=== PATIENT | female | born 1970 | race Caucasian/White ===

== ENCOUNTER 2017-05-05 23:05 | Emergency (ER) | payer MEDICAID ==
[2017-05-05 23:33] LABS: APPEARANCE CLEAR (CLEAR); BILIRUBIN NEGATIVE (NEGATIVE); COLOR YELLOW (YELLOW); GLUCOSE NEGATIVE (NEGATIVE); KETONE NEGATIVE (NEGATIVE); NITRITE NEGATIVE (NEGATIVE); PROTEIN NEGATIVE (NEGATIVE); UROBILINOGEN NORMAL (NORMAL)
[2017-05-05 23:46] LABS: UDS - AMPHET NEGATIVE QUAL (NEGATIVE); UDS - BARB NEGATIVE QUAL (NEGATIVE); UDS - BENZO NEGATIVE QUAL (NEGATIVE); UDS - COCAINE NEGATIVE QUAL (NEGATIVE); UDS - OPIATE NEGATIVE QUAL (NEGATIVE); UDS - PCP NEGATIVE QUAL (NEGATIVE); UDS - THC NEGATIVE QUAL (NEGATIVE)
[2017-05-06 00:13] LABS: BASOPHILS 0.4 % (0-2); EOSINOPHILS 2.5 % (0-7); HEMOGLOBIN 11.8 g/dL (12-16); IMMATURE GRANULOCYTES 0.5 % (0-5); LYMPHOCYTES 43.8 % (15-50); MCHC 31.9 g/dL (31.0-37.0); MCV 87.9 fL (80.0-100.0); MEAN PLATELET VOLUME 11.7 fL (7.4-10.4); MONOCYTES 7.3 % (2-11); NEUTROPHILS 45.5 % (40-80); RBC 4.21 10x6/uL (4.00-5.40); RDW 20.3 % (11.5-14.5); WBC 14.6 10x3/uL (4.8-10.8)
[2017-05-06 00:16] LABS: PLATELET COUNT 231 10x3/uL (130-400)
[2017-05-06 00:28] LABS: ALBUMIN 2.5 g/dL (3.4-5.0); ALKALINE PHOSPHATASE 209 U/L (46-116); ALT (SGPT) 232 U/L (10-68); CALC OSMOLALITY 274 mosm/kg (275-300); CALCIUM 8.3 mg/dL (8.5-10.1); CARBON DIOXIDE 24.8 mmol/L (21.0-32.0); CHLORIDE - SERUM 103 mmol/L (98-107); CREATININE - SERUM 0.6 mg/dL (0.6-1.3); GLUCOSE 98 mg/dL (74-106); POTASSIUM - SERUM 4.1 mmol/L (3.5-5.1); PROTEIN - SERUM 6.3 g/dL (6.4-8.2); SODIUM 138 mmol/L (136-145); UREA NITROGEN 11 mg/dL (7-18); eGFR NON AFRICAN AMERICAN > 90 mL/min (90-120)
== END 2017-05-06 01:38 | disposition home or self-care (01) ==
LOC: D.ER 23:05
PROVIDERS: Family Medicine
DX: Z86.59 Personal history of other mental and behavioral disorders (principal); R94.5 Abnormal results of liver function studies

== ENCOUNTER 2017-09-29 13:56 | Observation (INO) | payer MEDICAID ==
[~2017-09-29] VITALS: Ht 167.6 cm; Wt 121.1 kg
[2017-09-29] MEDS ORDERED: LISINOPRIL10 MG PO (14:23)
[2017-09-29] MEDS ORDERED: HYDROCODONE-APA1 TAB PO (14:23)
[2017-09-29] MEDS ORDERED: ATIVAN2 MG PO (14:23)
[2017-09-29] MEDS ORDERED: NEURONTIN 300300 MG PO (14:24)
[2017-09-29 14:30] VITALS: BP 118/64
[2017-09-29 15:01] VITALS: BP 144/69
[2017-09-29 15:03] LABS: BASOPHILS 0.4 % (0-2); EOSINOPHILS 1.4 % (0-7); HEMOGLOBIN 11.5 g/dL (12-16); IMMATURE GRANULOCYTES 0.4 % (0-5); LYMPHOCYTES 32.4 % (15-50); MCH 26.2 pg (26.0-34.0); MCHC 31.1 g/dL (31.0-37.0); MCV 84.3 fL (80.0-100.0); MEAN PLATELET VOLUME 11.6 fL (7.4-10.4); MONOCYTES 7.4 % (2-11); PLATELET COUNT 299 10x3/uL (130-400); RBC 4.39 10x6/uL (4.00-5.40); WBC 10.5 10x3/uL (4.8-10.8)
[2017-09-29 15:15] LABS: APTT 22.5 SECONDS (22.8-39.4); INR 0.88 (0.85-1.17); PROTIME 11.5 SECONDS (11.6-15.0)
[2017-09-29 15:17] LABS: D-DIMER-QUANTITATIVE 1.23 ug/mLFEU (0.20-0.54)
[2017-09-29 15:21] LABS: ALBUMIN 3.1 g/dL (3.4-5.0); ALKALINE PHOSPHATASE 132 U/L (46-116); ALT (SGPT) 19 U/L (10-68); BILIRUBIN - TOTAL 0.46 mg/dL (0.2-1.3); CALC OSMOLALITY 279 mosm/kg (275-300); CALCIUM 8.7 mg/dL (8.5-10.1); CARBON DIOXIDE 28.9 mmol/L (21.0-32.0); CHLORIDE - SERUM 104 mmol/L (98-107); CREATININE - SERUM 0.9 mg/dL (0.6-1.3); GLUCOSE 111 mg/dL (74-106); POTASSIUM - SERUM 3.7 mmol/L (3.5-5.1); PROTEIN - SERUM 6.9 g/dL (6.4-8.2); SODIUM 140 mmol/L (136-145); UREA NITROGEN 12 mg/dL (7-18); eGFR NON AFRICAN AMERICAN 71 mL/min (90-120)
[2017-09-29 15:33] LABS: CKMB 0.6 U/L (0.0-3.6); CREATINE KINASE 42 UL (21-215); PRO BNP 201 pg/mL (0-125)
[2017-09-29 15:34] LABS: TROPONIN-I < 0.017 ng/mL (0.000-0.060)
[2017-09-29 16:00] VITALS: BP 102/57
[2017-09-29 17:00] VITALS: BP 122/71
[2017-09-29 18:00] VITALS: BP 141/68
[2017-09-29] MEDS ORDERED: SEROQUEL400 MG PO (20:57)
[2017-09-29 21:10] LABS: CKMB 0.7 U/L (0.0-3.6); CREATINE KINASE 34 UL (21-215)
[2017-09-29 21:11] LABS: TROPONIN-I < 0.017 ng/mL (0.000-0.060)
[2017-09-29 21:58] VITALS: BP 120/54
[2017-09-29 22:55] VITALS: BMI 43.2
[2017-09-30] VITALS (7 sets, daily range): BP systolic 98–142; BP diastolic 48–70; Ht 167.6 cm; Wt 121.1 kg
[2017-09-30 05:54] LABS: CKMB 0.5 U/L (0.0-3.6); CREATINE KINASE 34 UL (21-215); TROPONIN-I < 0.017 ng/mL (0.000-0.060)
[2017-09-30 08:41] LABS: CKMB 0.7 U/L (0.0-3.6); CREATINE KINASE 36 UL (21-215)
[2017-09-30 08:45] LABS: TROPONIN-I < 0.017 ng/mL (0.000-0.060)
[2017-09-30 11:46] LABS: BASOPHILS 0 % (0-2); EOSINOPHILS 0 % (0-7); HEMATOCRIT 37.9 % (36.0-48.0); HEMOGLOBIN 11.7 g/dL (12-16); IMMATURE GRANULOCYTES 0.4 % (0-5); MCH 26.2 pg (26.0-34.0); MCHC 30.9 g/dL (31.0-37.0); MEAN PLATELET VOLUME 12.5 fL (7.4-10.4); MONOCYTES 0.5 % (2-11); NEUTROPHILS 86.1 % (40-80); PLATELET COUNT 340 10x3/uL (130-400); RBC 4.46 10x6/uL (4.00-5.40); WBC 9.6 10x3/uL (4.8-10.8)
[2017-09-30 12:03] LABS: ANION GAP 17.2 mmol/L (8-16); CALCIUM 8.8 mg/dL (8.5-10.1)
[2017-09-30 12:08] LABS: POTASSIUM - SERUM 5.2 mmol/L (3.5-5.1)
[2017-10-01 04:00] VITALS: BP 105/55
[2017-10-01 05:31] LABS: BASOPHILS 0 % (0-2); EOSINOPHILS 0.1 % (0-7); HEMATOCRIT 34.6 % (36.0-48.0); HEMOGLOBIN 10.6 g/dL (12-16); IMMATURE GRANULOCYTES 0.5 % (0-5); LYMPHOCYTES 6.4 % (15-50); MCHC 30.6 g/dL (31.0-37.0); MEAN PLATELET VOLUME 11.7 fL (7.4-10.4); MONOCYTES 2.6 % (2-11); NEUTROPHILS 90.4 % (40-80); PLATELET COUNT 285 10x3/uL (130-400); RBC 4.07 10x6/uL (4.00-5.40); RDW 17.2 % (11.5-14.5)
[2017-10-01 05:51] LABS: CALCIUM 8.5 mg/dL (8.5-10.1); CARBON DIOXIDE 29.8 mmol/L (21.0-32.0); CHLORIDE - SERUM 105 mmol/L (98-107); SODIUM 141 mmol/L (136-145)
[2017-10-01 06:04] LABS: WBC 18.7 10x3/uL (4.8-10.8)
[2017-10-01 06:06] LABS: CALC OSMOLALITY 281 mosm/kg (275-300); CREATININE - SERUM 0.7 mg/dL (0.6-1.3); GLUCOSE 134 mg/dL (74-106); POTASSIUM - SERUM 4.2 mmol/L (3.5-5.1); UREA NITROGEN 11 mg/dL (7-18); eGFR NON AFRICAN AMERICAN > 90 mL/min (90-120)
[2017-10-01 07:45] VITALS: BP 110/61
[2017-10-01] MEDS ORDERED: LEVAQUIN500 MG PO (09:56)
[2017-10-01] MEDS ORDERED: ALBUTEROL2.5 MG/3 M INH (09:56)
[2017-10-01] MEDS ORDERED: PROTONIX40 MG PO (09:57)
[2017-10-01] MEDS ORDERED: STERAPRED 5MG 65 M1 PO (09:57)
== END 2017-10-01 13:15 | disposition home or self-care (01) ==
LOC: D.ER 13:56 → D.EDHOLD 19:24 → D.M2 19:24 → OBSVTIME 19:24 → D.M2 19:55
PROVIDERS: Family Medicine; Internal Medicine Nephrology
DX: J44.0 Chronic obstructive pulmonary disease with (acute) lower respiratory infection (principal); J44.1 Chronic obstructive pulmonary disease with (acute) exacerbation; J20.9 Acute bronchitis, unspecified; F17.213 Nicotine dependence, cigarettes, with withdrawal; F41.8 Other specified anxiety disorders; E87.5 Hyperkalemia; I10 Essential (primary) hypertension

== ENCOUNTER 2018-05-26 14:10 | Inpatient (IN) | payer MEDICAID ==
[~2018-05-26] VITALS: Ht 167.6 cm; Wt 85.0 kg
--- NOTE | ~2018-05-26 | EC ---
PATIENT:DAVID IVEY DATE OF SERVICE: 05/27/18 SEX: F MEDICAL RECORD: [id number] DATE OF : [birth year] LOCATION:D. D.211 AGE OF PATIENT: 48 ADMISSION DATE: 05/27/18 REFERRING PHYSICIAN: INTERPRETING PHYSICIAN: RADHA CEBALLOS MD ECHOCARDIOGRAM REPORT ECHO CHARGES 4 ECHO COMPLETE Date: 05/28/18 CLINICAL DIAGNOSIS: SOB ECHOCARDIOGRAPHIC MEASUREMENTS (adult normal given) AC root (d.<3.7cm) 3.0 cm LV Septum d (<1.2 cm> 1.3 cm Valve Excursion 1.8 cm LV Septum (systole) 1.3 cm Left Atria (s.<4.0cm> 2.8 cm LVPW d(<1.2cm) 1.3 cm RV (d.<2.3cm) 2.8 cm LVPW (sytole) 1.8 cm LV diastole(<5.6CM) 4.4 cm MV E-F(>70mm/sec) cm LV systole 3.1 cm LVOT Diameter 2.0 cm MV exc.(>10mm) cm Est.ejection fraction (50-75%) % DOPPLER: LVIT cm/sec A 85 cm/sec E 92 cm/sec LA cm/sec RVSP 23.1 mmHg LVOT 110 cm/sec AOP1/2T m/s Asc. Ao 134 cm/sec RVOT 80 cm/sec RA cm/sec PA 78 cm/sec AV Gradient Peak 7.1 mmHg AV Mean 3.9 mmHg AV Area 2.6 cm MV Gradient Peak 3.7 mmHg MV Mean 1.9 mmHg MV Area cm COMMENTS: Outdoor Education Teacher: Franca [facility] Box Stamper: 3 Dr. Davis TAPE# PACS Pericardial Effusion N DATE OF SERVICE: Adequate 2D echo, color flow and spectral Doppler, and M-Mode Borderline LVH. LV internal dimensions are normal. Wall motion is normal. EF is greater than or equal to 55%. Aortic valve is tricuspid. No evidence of stenosis by Doppler interrogation. Left atrium is normal. Mitral valve shows prolapse, trace MR. Right-sided chamber is grossly normal. Trace TR. TRANSINT:[id number] Voice Confirmation ID: [id number] DOCUMENT ID: [id number] ECHOCARDIOGRAM REPORT [id number] DAVID IVEY RADHA CEBALLOS MD CC: [id number] DICTATION DATE: 05/29/18 1014 HANDLE MACHINE OPERATOR: 05/29/18 1232 ADM IN [facility] [address] [id number]
[~2018-05-26 14:10] MED LIST: ALBUTEROL2.5 MG/3 M INH; ATIVAN2 MG PO; HYDROCODONE-APA1 TAB PO; LEVAQUIN500 MG PO; LISINOPRIL10 MG PO; NEURONTIN 300300 MG PO; PROTONIX40 MG PO; SEROQUEL400 MG PO; STERAPRED 5MG 65 M1 PO
[2018-05-26] MEDS ORDERED: METOPROLOL TART50 MG PO (14:16)
[2018-05-26 14:30] VITALS: BP 138/73
[2018-05-26 15:03] LABS: APTT 22.1 SECONDS (22.8-39.4); INR 0.98 (0.85-1.17); PROTIME 12.5 SECONDS (11.6-15.0)
[2018-05-26 15:08] LABS: ALBUMIN 3.4 g/dL (3.4-5.0); ALKALINE PHOSPHATASE 144 U/L (46-116); ALT (SGPT) 21 U/L (10-68); CALC OSMOLALITY 269 mosm/kg (275-300); CALCIUM 8.2 mg/dL (8.5-10.1); CARBON DIOXIDE 21.9 mmol/L (21.0-32.0); CHLORIDE - SERUM 98 mmol/L (98-107); CREATININE - SERUM 0.6 mg/dL (0.6-1.3); GLUCOSE 114 mg/dL (74-106); POTASSIUM - SERUM 4.2 mmol/L (3.5-5.1); PROTEIN - SERUM 7.1 g/dL (6.4-8.2); SODIUM 135 mmol/L (136-145); UREA NITROGEN 11 mg/dL (7-18); eGFR NON AFRICAN AMERICAN > 90 mL/min (90-120)
[2018-05-26 15:10] LABS: APPEARANCE CLEAR (CLEAR); BILIRUBIN NEGATIVE (NEGATIVE); COLOR STRAW (YELLOW); GLUCOSE NEGATIVE (NEGATIVE); KETONE NEGATIVE (NEGATIVE); NITRITE NEGATIVE (NEGATIVE); PROTEIN TRACE mg/dL (NEGATIVE); SPECIFIC GRAVITY 1.005 (1.005-1.020); UROBILINOGEN NORMAL (NORMAL)
[2018-05-26 15:11] LABS: D-DIMER-QUANTITATIVE 6.78 ug/mLFEU (0.20-0.54)
[2018-05-26 15:15] LABS: BASOPHILS 0.7 % (0-2); EOSINOPHILS 0.9 % (0-7); HEMATOCRIT 36.1 % (36.0-48.0); HEMOGLOBIN 11.2 g/dL (12-16); IMMATURE GRANULOCYTES 0.5 % (0-5); LYMPHOCYTES 38.7 % (15-50); MEAN PLATELET VOLUME 11.6 fL (7.4-10.4); MONOCYTES 6.8 % (2-11); NEUTROPHILS 52.4 % (40-80); RDW 16.9 % (11.5-14.5); WBC 16.4 10x3/uL (4.8-10.8)
[2018-05-26 15:16] LABS: PLATELET COUNT 374 10x3/uL (130-400)
[2018-05-26 15:20] LABS: CKMB 1.6 U/L (0.0-3.6); CREATINE KINASE 61 UL (21-215); PRO BNP 94 pg/mL (0-125); TROPONIN-I < 0.017 ng/mL (0.000-0.060)
[2018-05-26 15:22] LABS: UDS - AMPHET NEGATIVE QUAL (NEGATIVE); UDS - BARB NEGATIVE QUAL (NEGATIVE); UDS - BENZO NEGATIVE QUAL (NEGATIVE); UDS - COCAINE NEGATIVE QUAL (NEGATIVE); UDS - OPIATE NEGATIVE QUAL (NEGATIVE); UDS - PCP NEGATIVE QUAL (NEGATIVE); UDS - THC NEGATIVE QUAL (NEGATIVE)
--- NOTE | 2018-05-26 15:28 | NUR ---
PT WALLERING AROUND IN BED, SMELL OF ETOH ASK IF SHE HAS BEEN DRINKING , SHE STATES YES EARLIER TODAY.
[2018-05-26 16:17] VITALS: BP 126/72
[2018-05-26 17:18] VITALS: BP 132/72
[2018-05-26 18:19] VITALS: BP 133/76
--- NOTE | 2018-05-26 19:34 | NUR ---
REPORT RECEIVED FROM ER, ER STATES SOLU-MED AND ROCEPHIN WILL BE GIVEN IN ER, PT HAS RECEIVED 1L NS. PT ON ROOM AIR LAST BP 104/81 HR [address] PT SLIGHTLY CONFUSED, WONT LEAVE ON O2 BUT IS 98% WILL BE ARRIVING TO ROOM 2109
[2018-05-26 20:00] VITALS: BP 138/57
--- NOTE | 2018-05-26 20:15 | NUR ---
PT ARRIVED TO ROOM 2109 PT MAU ALARM ON AND ACTIVE. ROCEPHIN INFUSING. PT ASKING FOR A SANDWICH. UP TO RESTROOM. WITH MINIMAL ASSIST. GAIT STEADY. PT HAS CALL LIGHT IN REACH. WILL CPOC
--- NOTE | 2018-05-26 20:55 | NUR ---
SPOKE WITH DR BALLESTEROS REGARDING LATIC ACID ELEVATION, D-DIMER AND HEADACHE. HE STATED LATIC ACID PROBALLY INCREASED DUE TO ETOH, ORDER A CTA IF IT HAS NOT BEEN COMPLETED AND TYLENOL FOR HEADACHE.
--- NOTE | 2018-05-26 21:16 | NUR ---
PT UP TO RESTROOM. TYLENOL GIVEN FOR HEADACHE.
--- NOTE | 2018-05-26 23:35 | NUR ---
PT UP TO RESTROOM. CALLED FOR ASSIST. PT HAS NO OTHER NEEDS. NO S/S OF DISTRESS. PT IS AAO. WILL CALL FOR ASSIST WHEN NEEDED. WILL CPOC
[2018-05-26 23:54] VITALS: BP 138/57; BMI 46.9
[2018-05-27] VITALS (7 sets, daily range): BP systolic 105–148; BP diastolic 57–85; Ht 167.6 cm; Wt 85.0 kg
--- NOTE | 2018-05-27 01:13 | NUR ---
PT STATES HER HEAD IS STARTING TO HURT AGAIN. AND COMPLAINS OF PAIN. EXPLAINED TO PT THAT SHE ALREADY HAD TYLENOL AND IT ISNT TIME YET. SHE STATES SHE FORGOT. GAVE PT HER SOLU MED AND ASSISTED TO RESTROOM. PT WILL CALL FOR ASSIST WHEN NEEDED. WILL CPOC
--- NOTE | 2018-05-27 02:33 | NUR ---
PT UP TO RESTROOM, PT HAS NO S/S OF DISTRESS. DENIES ANY NEEDS. BEDLOW AND CALL LIGHT IN REACH. WILL CPOC
[2018-05-27 05:33] LABS: BASOPHILS 0.1 % (0-2); EOSINOPHILS 0 % (0-7); HEMATOCRIT 32.1 % (36.0-48.0); HEMOGLOBIN 9.8 g/dL (12-16); IMMATURE GRANULOCYTES 0.9 % (0-5); LYMPHOCYTES 12.9 % (15-50); MCH 25.4 pg (26.0-34.0); MCHC 30.5 g/dL (31.0-37.0); MCV 83.2 fL (80.0-100.0); MEAN PLATELET VOLUME 11.4 fL (7.4-10.4); MONOCYTES 0.7 % (2-11); NEUTROPHILS 85.4 % (40-80); PLATELET COUNT 339 10x3/uL (130-400); RBC 3.86 10x6/uL (4.00-5.40); RDW 16.9 % (11.5-14.5)
[2018-05-27 05:37] LABS: WBC 8.6 10x3/uL (4.8-10.8)
[2018-05-27 06:16] LABS: ALBUMIN 2.8 g/dL (3.4-5.0); ALKALINE PHOSPHATASE 123 U/L (46-116); BILIRUBIN - TOTAL 0.13 mg/dL (0.2-1.3); CALC OSMOLALITY 274 mosm/kg (275-300); CALCIUM 7.5 mg/dL (8.5-10.1); CARBON DIOXIDE 17.7 mmol/L (21.0-32.0); CHLORIDE - SERUM 102 mmol/L (98-107); CKMB 1.4 U/L (0.0-3.6); CREATINE KINASE 57 UL (21-215); CREATININE - SERUM 0.7 mg/dL (0.6-1.3); GLUCOSE 136 mg/dL (74-106); POTASSIUM - SERUM 3.9 mmol/L (3.5-5.1); PROTEIN - SERUM 6.5 g/dL (6.4-8.2); SODIUM 137 mmol/L (136-145); TROPONIN-I < 0.017 ng/mL (0.000-0.060); UREA NITROGEN 10 mg/dL (7-18); eGFR NON AFRICAN AMERICAN > 90 mL/min (90-120)
[2018-05-27 06:17] LABS: ALT (SGPT) 14 U/L (10-68)
--- NOTE | 2018-05-27 06:17 | NUR ---
PT COMPLAINS OF HEADACHE. TYLENOL GIVEN FOR 6/10 PAIN. PT DENIES ANY OTHER NEEDS. WILL CPOC
--- NOTE | 2018-05-27 07:15 | NUR ---
RECEIVED BEDSIDE SHIFT REPORT. ASSUMED CARE OF PATIENT. PATIENT RESTING IN BED WITH EYES CLOSED. EASILY AROUSED. RESP EVEN AND UNLABORED. PATIENT WANTING TO KNOW IF HER HOME MEDICATIONS WILL BE RESTARTED. INFORMED PATIENT THAT ONCE THE ATTENDING PHYSICIAN HAS REVIEWED THEM, THEY WILL RESTART THE MEDICATIONS THEY WANT YOU TO HAVE WILL IN THE HOSPITAL. NO DISTRESS. ST ON TELEMETRY. ST 103
--- NOTE | 2018-05-27 11:16 | NUR ---
SPOKE TO NI HUNT IN RADIOLOGY AND THEN CALLED MORIS VALDEZ TO LET HER KNOW THAT CTA TO RULE OUT PE WAS COMPLETED YESTERDAY AND THE RESULT WAS NEGATIVE. INFORMED RADIOLOGY THAT WE STILL SHOW BOTH ORDERS ACTIVE AND HAVE NO ACCESS TO ANY REPORTS AND TO PLEASE BRING A REPORT TO THE FLOOR EVIDENCE IT WAS COMPLETED OR MAKE THE REPORT AVAILABLE TO US IN [facility] BECAUSE THE PROVIDERS NOR MYSELF CAN SEE THE REPORT. NI HUNT SAID SHE WOULD GET THE REPORT LOADED. THANKED NI HUNT.
[2018-05-27 11:34] LABS: % SATURATION 7 % (15-55); IRON 38 ug/dl (35-150); TOTAL IRON BIND CAPACITY 483 ug/dl (260-445); UNSAT IRON BIND CAPACITY 445 ug/dl (150-375)
--- NOTE | 2018-05-27 11:57 | NUR ---
RESTING IN BED, NO DISTRESS. HOME MEDS RESTARTED AT THIS TIME.
--- NOTE | 2018-05-27 12:00 | NUR ---
MEDICATED FOR PAIN AT THIS TIME. NO DISTRESS.
--- NOTE | 2018-05-27 13:50 | NUR ---
MEDICATED FOR ANXIETY AT THIS TIME. NO DISTRESS. RESTING NOW IN BED WITH EYES CLOSED.
--- NOTE | 2018-05-27 15:54 | NUR ---
RESTING IN BED WITH EYES CLOSED. RESP EVEN AND UNLABORED. NO DISTRESS. CALL LIGHT WITHIN REACH.
--- NOTE | 2018-05-27 16:45 | NUR ---
AT BEDSIDE FOR ROUNDS. NO DISTRESS. CALL LIGHT WITHIN REACH.
--- NOTE | 2018-05-27 18:12 | NUR ---
CALLED AND SPOKE TO GILBERT MATANURSES ASSISTANT REGARDING NEW ORDER FOR IRON INFUSION AND MINERVA STATED THAT NURSES ASSISTANT DOES NOT MAKE THAT ONE AND IT WOULD HAVE TO WAIT UNTIL THE AM.
--- NOTE | 2018-05-27 19:37 | NUR ---
RECEIVED REPORT, WILL ASSUME CARE OF PT, PT IS SLEEPING, NO DISTRESS NOTICED AT THIS TIME, BED IS LOW, SRX2, CALL LIGHT IN REACH, WILL CONTINUE PLAN OF CARE
--- NOTE | 2018-05-27 21:40 | NUR ---
PM MEDS GIVEN WITH A GLASS OF WATER, WILL CONTINUE PLAN OF CARE
[2018-05-28 04:30] VITALS: BP 131/77
[2018-05-28 04:56] LABS: BASOPHILS 0 % (0-2); EOSINOPHILS 0 % (0-7); HEMATOCRIT 32.8 % (36.0-48.0); HEMOGLOBIN 10.1 g/dL (12-16); IMMATURE GRANULOCYTES 0.5 % (0-5); LYMPHOCYTES 9.1 % (15-50); MCH 25.8 pg (26.0-34.0); MCHC 30.8 g/dL (31.0-37.0); MCV 83.7 fL (80.0-100.0); MEAN PLATELET VOLUME 11.7 fL (7.4-10.4); NEUTROPHILS 87.4 % (40-80); PLATELET COUNT 304 10x3/uL (130-400); RBC 3.92 10x6/uL (4.00-5.40); RDW 16.9 % (11.5-14.5)
--- NOTE | 2018-05-28 05:00 | NUR ---
ASSESSMENT REVIEWED AND IN AGREEMENT. PT RESTING WITH NO DISTRESS. MONITOR AND CPOC.
[2018-05-28 05:19] LABS: WBC 11.1 10x3/uL (4.8-10.8)
[2018-05-28 05:34] LABS: CALC OSMOLALITY 272 mosm/kg (275-300); CALCIUM 8.7 mg/dL (8.5-10.1); CHLORIDE - SERUM 104 mmol/L (98-107); CREATININE - SERUM 0.5 mg/dL (0.6-1.3); GLUCOSE 141 mg/dL (74-106); POTASSIUM - SERUM 4.1 mmol/L (3.5-5.1); SODIUM 136 mmol/L (136-145); UREA NITROGEN 9 mg/dL (7-18)
[2018-05-28 05:35] LABS: CARBON DIOXIDE 27.9 mmol/L (21.0-32.0); eGFR NON AFRICAN AMERICAN > 90 mL/min (90-120)
[2018-05-28 08:30] VITALS: BP 132/83
--- NOTE | 2018-05-28 10:00 | NUR ---
PT RESTING IN BED, SHIFT ASSESSMENT PERFORMED, PIV TO LEFT UPPER ARM AND PIV TO RIGHT FA ARE BOTH INFILTRATED. OBTAINED IV SUPPLIES. 20G PIV INSERTED X1 ATTEMPT TO RIGHT UPPER ARM, NO COMPLICATIONS NOTED. AM MEDICATIONS GIVEN ORDERED, PT REPORTED PAIN OF 8/10, PRN NORCO GIVEN. OBTAINED SUPPLIES FOR PT TO TAKE A SHOWER, COMPLETE BED LINEN CHANGE PROVIDED WHILE PT SHOWERED. TELEMETRY ELECTRODES CHANGED. CALL LIGHT WITHIN REACH, DENIES ANY OTHER NEEDS AT THIS TIME, WILL CONT TO FOLLOW PLAN OF CARE
[2018-05-28 15:59] VITALS: BP 149/84
[2018-05-28 20:31] VITALS: BP 130/73
--- NOTE | 2018-05-28 23:30 | NUR ---
COMPLAINS IV IS BURNING, PALMER VINCENTN RESITED 20G-TO L.WRIST, BED IS LOW, SRX2, CALL LIGHT IN REACH, WILL CONTINUE PLAN OF CARE
--- NOTE | 2018-05-29 05:21 | NUR ---
I have reviewed this patient and I concur with the Shift Assessment completed by the Licensed Practical Nurse today this shift.
[2018-05-29 05:30] VITALS: BP 129/77
[2018-05-29 06:33] LABS: BASOPHILS 0 % (0-2); EOSINOPHILS 0.1 % (0-7); HEMATOCRIT 32.8 % (36.0-48.0); HEMOGLOBIN 9.9 g/dL (12-16); IMMATURE GRANULOCYTES 1.2 % (0-5); LYMPHOCYTES 7.8 % (15-50); MCH 25.6 pg (26.0-34.0); MCHC 30.2 g/dL (31.0-37.0); MCV 84.8 fL (80.0-100.0); MEAN PLATELET VOLUME 12.4 fL (7.4-10.4); MONOCYTES 2.1 % (2-11); NEUTROPHILS 88.8 % (40-80); PLATELET COUNT 319 10x3/uL (130-400); RBC 3.87 10x6/uL (4.00-5.40); RDW 17.2 % (11.5-14.5); WBC 12.6 10x3/uL (4.8-10.8)
[2018-05-29 06:59] LABS: CALC OSMOLALITY 283 mosm/kg (275-300); CALCIUM 8.2 mg/dL (8.5-10.1); CARBON DIOXIDE 26.7 mmol/L (21.0-32.0); CHLORIDE - SERUM 106 mmol/L (98-107); CREATININE - SERUM 0.7 mg/dL (0.6-1.3); GLUCOSE 130 mg/dL (74-106); POTASSIUM - SERUM 4.1 mmol/L (3.5-5.1); SODIUM 141 mmol/L (136-145); UREA NITROGEN 16 mg/dL (7-18); eGFR NON AFRICAN AMERICAN > 90 mL/min (90-120)
[2018-05-29 08:04] VITALS: BP 130/67
--- NOTE | 2018-05-29 09:00 | NUR ---
PT RESTING IN BED, AM MEDS GIVEN ORDERED. PT TOLERATED WELL. SHIFT ASSESSMENT PERFORMED, CALL LIGHT WITHIN REACH, WILL CONT TO FOLLOW PLAN OF CARE
--- NOTE | 2018-05-29 10:18 | NUR ---
PT WAS RUNNING ST AT 134 AT 0830 THIS AM , PT WAS ADMITTED WITH ALCOHOL INTOXICATON AND HAS PRN ATIVAN IV. ATIVAN GIVEN AT 0830. PT IS CURRENTLY RUNNING NSR AT 82. WILL CONT TO FOLLOW PLAN OF CARE
[2018-05-29 11:23] VITALS: BP 132/80
--- NOTE | 2018-05-29 13:17 | NUR ---
20 GUAGE PIV INSERTED TO R.AC X2 STICK. TEGADERM SECURED AND SWAB CAPS IN USE. PRIMARY NURSE AT BEDSIDE RESTARTED PTS FLUIDS/MEDS. PT HAD 2 INFILTRATED PIVS. 1 TO THE L.FA D/C WITH CATHETER TIP FULLY INTACT. 1 TO THE R.UPPER ARM D/C WITH CATHETER TIP FULLY INTACT. NO CURRENT NEEDS. WILL CTM.
[2018-05-29 15:11] VITALS: BP 137/86
--- NOTE | 2018-05-29 19:30 | NUR ---
RECEIVED REPORT, WILL ASSUME CARE OF PT, ASKING FOR ICE, WILL PROVIDE, DENIES ANY OTHER NEEDS, BED IS LOW, SRX2, CALL LIGHT IN REACH, WILL CONTINUE PLAN OF CARE
[2018-05-29 21:26] VITALS: BP 141/74
--- NOTE | 2018-05-29 21:57 | NUR ---
REQUESTING ATIVAN, GAVE ORDER
[2018-05-30 00:29] VITALS: BP 117/71
--- NOTE | 2018-05-30 06:01 | NUR ---
ASKING FOR PAIN PILL, GAVE NORCO ORDER
[2018-05-30 06:05] LABS: BASOPHILS 0.1 % (0-2); EOSINOPHILS 0 % (0-7); HEMATOCRIT 34.1 % (36.0-48.0); HEMOGLOBIN 10.1 g/dL (12-16); IMMATURE GRANULOCYTES 2.6 % (0-5); MCH 25.5 pg (26.0-34.0); MCHC 29.6 g/dL (31.0-37.0); MCV 86.1 fL (80.0-100.0); MEAN PLATELET VOLUME 11.9 fL (7.4-10.4); NEUTROPHILS 82.3 % (40-80); PLATELET COUNT 270 10x3/uL (130-400); RBC 3.96 10x6/uL (4.00-5.40); RDW 17.2 % (11.5-14.5)
[2018-05-30 06:19] LABS: WBC 17.2 10x3/uL (4.8-10.8)
[2018-05-30 06:22] VITALS: BP 129/79
[2018-05-30 06:33] LABS: CALC OSMOLALITY 283 mosm/kg (275-300); CALCIUM 8.3 mg/dL (8.5-10.1); CHLORIDE - SERUM 106 mmol/L (98-107); CREATININE - SERUM 0.7 mg/dL (0.6-1.3); GLUCOSE 116 mg/dL (74-106); POTASSIUM - SERUM 4.2 mmol/L (3.5-5.1); SODIUM 141 mmol/L (136-145); UREA NITROGEN 19 mg/dL (7-18); eGFR NON AFRICAN AMERICAN > 90 mL/min (90-120)
[2018-05-30 08:21] LABS: FOLATE (FOLIC ACID) - SERUM 3.3 ng/mL (>3.0)
[2018-05-30 09:17] LABS: IMMUNOGLOBULIN A 203 mg/dL (87-352)
--- NOTE | 2018-05-30 09:20 | NUR ---
PT SITTING UP TO CHAIR AT BEDSIDE. DENIES PAIN AT THIS TIME BUT REQUEST ATIVAN. VITALS STABLE, TOOK MEDS WITHOUT DIFFICULTY. A/O X 4. UP AB SARINA. NORMAL SINUS ON TELE. R AC IV SL. ROOM AIR. NO EDEMA NOTED. LUNGS CLEAR. NO FURTHER CONCERNS AT THIS TIME. BED LOWERED AND LOCKED. CL IN REACH. WILL CPOC.
--- NOTE | 2018-05-30 09:26 | NUR ---
PT LAYING IN BED THIS MORNING YELLING OUT "TABATHA" CLINIC PHYSICIAN DIRECTOR INFORMED ME THAT PT WAS REFUSING LABS AGAIN THIS AM. INFORMED PT THAT IF SHE REFUSED LABS THEN THE MD WOULDNT BE ABLE TO ASSESS WHETHER OR NOT SHE WAS GETTING BETTER OR WORSE, AND THE APPORRIATE WAY TO TREAT HER. PT STATED "I AM NOT GOING TO BE STUCK MY HER OVER AND OVER AGAIN" I INFORMED THE PT THAT IF SHE KEPT REFUSING SHE WOULD CONTINUE TO GET SICK, NO DOCTOR WOULD TREAT HER AND SHE WOULD JUST END UP HOME AGAIN. SHE THEN STATED "WELL THATS WHEN I WILL GET A DOCTOR" I STATED "THE DOCTOR WONT TAKE CARE OF YOU IF YOU ARE NON COMPLIANT" AND THE PT STATED "I AM GOING TO BE NON COMPLIANT FOR YOU" I ASK THE PT WHY SHE KEPT TRYING TO GET OUT OF BED, PT STATED "IF I GET ON THE FLOOR MAYBE SOMEONE WILL PAY ATTENTION TO ME" THE BED ALARM IS TURNED ON AND ASSISTED THE SKYLIGHTS ASSEMBLER, AND CAROLYNE WOUND CARE NURSE IN PUTTING A MAU MAT UNDERNEATH THE PT. THE PT SWUNG HER ARMS AND PULLED CAROLYNE'S HAIR WE TURNED HER TO PUT THE MAU ON THE BED. I WAS FILLING THE PT KANGAROO BAG THE PT STATED "I KNOW YOU WERE TRYING TO PULL THIS OUT, DONT DO THAT IT WILL KILL ME" PT REFUSED VITALS SIGNS. NO BASELINE DATA FOR THE DAY. INFORMED PRINCESS TERRELL APN FOR RENAL OF TODAYS OCCURANCES. NO FURTHER COMPLAINTS AT THIS TIME. ATIVAN ORDERED. WILL CPOC.
[2018-05-30 09:52] VITALS: BP 129/77
--- NOTE | 2018-05-30 11:11 | NUR ---
IV TO R AC INFILTRATED. IV REMOVED. TIP INTACT. NO IV RESITED. PT TO DC TODAY. REFUSED NEW IV.
--- NOTE | 2018-05-30 11:45 | NUR ---
PT REFUSES TO WEAR TELE.
[2018-05-30] MEDS ORDERED: DOXYCYCLINE HY100 M2 PO (12:45)
[2018-05-30] MEDS ORDERED: MUCINEX DM ER1 EAC1 PO (12:47)
[2018-05-30] MEDS ORDERED: SINGULAIR10 MG PO (12:47)
[2018-05-30] MEDS ORDERED: Tessalon Perle PO (12:48)
[2018-05-30] MEDS ORDERED: PREDNISONE10 MG PO (12:48)
[2018-05-30] MEDS ORDERED: TESSALON PERLE100 MG PO (12:50)
--- NOTE | 2018-05-30 14:05 | MORECARE ---
CASE MANAGEMENT DISCHARGE SUMMARY PATIENT: DAVID IVEY UNIT: [id number] ADM DATE: 05/27/18 AGE: 48 : [birth year] SEX: F ROOM/BED: D.2110 AUTHOR: MORRO ANTHONY PHYSICIAN: REFERRING PHYSICIAN: JOE BALLESTEROS MD DATE OF SERVICE: 05/30/18 Discharge Plan Patient Name: DAVID IVEY Facility: [facility]:[place] : 1970 Planned Disposition: Home Anticipated Discharge Date: 05/30/18 Discharge Date: Expected LOS: 3 Initial Reviewer: [email or web address] Initial Review Date: 05/30/2018 Generated: 05/30/18 3:05 pm Patient Name: DAVID IVEY Page [phone] at 1405 All edits/amendments must be made on the electronic document DICTATION DATE: 05/30/18 1405 CASEWORK MANAGER: MARIANO 05/30/18 1405 RPT#: [id number] DC DATE: STATUS: ADM IN [facility] [address] [place] [address] END OF REPORT
--- NOTE | 2018-05-30 14:16 | MORECARE ---
CASE MANAGEMENT DISCHARGE SUMMARY PATIENT: DAVID IVEY UNIT: [id number] ADM DATE: 05/27/18 AGE: 48 : 68 SEX: F ROOM/BED: D.2110 AUTHOR: GABRIELLE,DOC PHYSICIAN: REFERRING PHYSICIAN: JOE BALLESTEROS MD DATE OF SERVICE: 05/30/18 Discharge Plan Patient Name: DAVID IVEY Facility: [facility]:[place] : 1970 Planned Disposition: Home Anticipated Discharge Date: 05/30/18 Discharge Date: Expected LOS: 3 Initial Reviewer: [email or web address] Initial Review Date: 05/30/2018 Generated: 05/30/18 3:15 pm Comments DCP- Discharge Planning Updated by [email or web address]: Dean Dick on 05/30/18 1:[address] Patient Name: DAVID IVEY Admission Status: ER Accout number: [id number] Admission Date: 05-27-2018 : 1970 Admission Diagnosis:SHORTNESS OF BREATH Attending: JOE BALLESTEROS Current LOS: 3 Anticipated DC Date: 05-30-2018 Planned Disposition: Home Primary Insurance: MEDICAID [place] Discharge Planning Comments: CM MET WITH PT IN ROOM TO DISCUSS DISCHARGE PLANNING AND NEEDS. PT REPORTS LIVING AT HOME INDEPENDENTLY AT [facility]. PT HAS OXYGEN AT NIGHT AND NEBULIZER FROM [facility]. PT HAS NO OUTSIDE SERVICES ASSISTING IN THE HOME. PATIENT DOES UTILIZE MEDICAID TRANSPORTATION SERVICES NEEDED. CM DISCUSSED AVAILABILITY OF HOME HEALTH, REHAB SERVICES AND MEDICAL EQUIPMENT. PT DENIES DISCHARGE NEEDS, REPORTS HER LANDLORD WILL PICK HER UP FOR DISCHARGE HOME. PIE DOUGH ROLLER NURSE NOTIFIED. Pest Control Technician: Dean Dick DCPIA - Discharge Planning Initial Assessment Updated by [email or web address]: Dean Dick on 05/30/18 2:10 pm * Is the patient Alert and Oriented? Yes * How many steps to enter\exit or inside your home? * PCP DR. AHUMADA * Pharmacy [facility] * Preadmission Environment Home Alone * ADLs Independent * Equipment Nebulizer Oxygen * Other Equipment OXYGEN AT NIGHT [facility] - MEDICAL EQUIPMENT PROVIDER PREFERENCE * List name and contact numbers for known caregivers / representatives who currently or will assist patient after discharge: [facility], * Verbal permission to speak to the caregivers and representatives has been obtained from the patient. N/A * Community resources currently utilized None * Please name any agencies selected above. [facility] JENK[facility], * Additional services required to return to the preadmission environment? No * Can the patient safely return to the preadmission environment? Yes * Has this patient been hospitalized within the prior 30 days at any hospital? No Last DP export: 05/30/18 1:05 pm Patient Name: DAVID IVEY Page [phone] at 1416 All edits/amendments must be made on the electronic document DICTATION DATE: 05/30/181414 COMPENSATION ANALYST: MARIANO 05/30/181414 RPT#: [id number] DC DATE: STATUS: ADM IN [facility] [address] [place] [address] END OF REPORT
--- NOTE | 2018-05-30 14:29 | NUR ---
DC GIVEN TO PT. DENIES CONCERNS AT THIS TIME.
--- NOTE | 2018-05-30 14:32 | NUR ---
PT DC HOME PER PERSONAL CAR VIA [facility].
[2018-05-31 06:16] LABS: IGG SUBCLASS 1 242 mg/dL (248-810); IGG SUBCLASS 2 324 mg/dL (130-555); IGG SUBCLASS 3 103 mg/dL (15-102); IGG SUBCLASS 4 13 mg/dL (2-96); IMMUNOGLOBULIN G 696 mg/dL (700-1600)
== END 2018-05-30 14:38 | disposition home or self-care (01) | DRG 871 ==
LOC: D.ER 14:10 → OBSVTIME 18:59 → D.M2 18:59 → D.EDHOLD 18:59 → D.M2 19:22
PROVIDERS: Family Medicine; Internal Medicine Pulmonary Disease; ADMIT Internal Medicine Nephrology; ATTEND Internal Medicine Nephrology
DX: A41.9 Sepsis, unspecified organism (principal); J96.21 Acute and chronic respiratory failure with hypoxia; J18.9 Pneumonia, unspecified organism; J44.1 Chronic obstructive pulmonary disease with (acute) exacerbation; Z68.42 Body mass index [BMI] 45.0-49.9, adult; J44.0 Chronic obstructive pulmonary disease with (acute) lower respiratory infection; I10 Essential (primary) hypertension; E03.9 Hypothyroidism, unspecified; F10.129 Alcohol abuse with intoxication, unspecified; Y90.8 Blood alcohol level of 240 mg/100 ml or more; E66.01 Morbid (severe) obesity due to excess calories; F41.9 Anxiety disorder, unspecified; D50.9 Iron deficiency anemia, unspecified; J20.9 Acute bronchitis, unspecified

== ENCOUNTER 2018-09-08 21:00 | Emergency (ER) | payer MEDICAID ==
[~2018-09-08] VITALS: Ht 167.6 cm; Wt 128.6 kg
[~2018-09-08 21:00] MED LIST changes: +DOXYCYCLINE HY100 M2 PO; +METOPROLOL TART50 MG PO; +MUCINEX DM ER1 EAC1 PO; +PREDNISONE10 MG PO; +SINGULAIR10 MG PO; +TESSALON PERLE100 MG PO; +Tessalon Perle PO
[2018-09-08 21:06] VITALS: Ht 167.6 cm; Wt 128.6 kg
[2018-09-08 21:40] LABS: APPEARANCE HAZY (CLEAR); COLOR YELLOW (YELLOW)
[2018-09-08 21:41] LABS: BILIRUBIN NEGATIVE (NEGATIVE); GLUCOSE NEGATIVE (NEGATIVE); KETONE NEGATIVE (NEGATIVE); NITRITE NEGATIVE (NEGATIVE); PROTEIN NEGATIVE (NEGATIVE); UROBILINOGEN NORMAL (NORMAL)
[2018-09-08 21:42] LABS: BACTERIA MANY /hpf (NONE SEEN); EPITHELIAL CELLS 0-5 /hpf (0-5); RED CELLS - URINE 0-5 /hpf (0-5); WHITE CELLS - URINE 0-5 /hpf (0-5)
[2018-09-08 22:10] LABS: ALBUMIN 2.8 g/dL (3.4-5.0); ALKALINE PHOSPHATASE 116 U/L (46-116); ALT (SGPT) 20 U/L (10-68); BILIRUBIN - TOTAL 0.18 mg/dL (0.2-1.3); CALC OSMOLALITY 263 mosm/kg (275-300); CALCIUM 8.6 mg/dL (8.5-10.1); CARBON DIOXIDE 22.9 mmol/L (21.0-32.0); CHLORIDE - SERUM 99 mmol/L (98-107); CREATININE - SERUM 0.8 mg/dL (0.6-1.3); GLUCOSE 104 mg/dL (74-106); PROTEIN - SERUM 6.5 g/dL (6.4-8.2); SODIUM 132 mmol/L (136-145); UREA NITROGEN 11 mg/dL (7-18); eGFR NON AFRICAN AMERICAN 81 mL/min (90-120)
[2018-09-08 22:20] LABS: BASOPHILS 0.4 % (0-2); EOSINOPHILS 1.8 % (0-7); HEMATOCRIT 35.3 % (36.0-48.0); HEMOGLOBIN 11.3 g/dL (12-16); IMMATURE GRANULOCYTES 0.5 % (0-5); LYMPHOCYTES 39.6 % (15-50); MCV 84.4 fL (80.0-100.0); MEAN PLATELET VOLUME 12.2 fL (7.4-10.4); MONOCYTES 13.7 % (2-11); PLATELET COUNT 244 10x3/uL (130-400); RBC 4.18 10x6/uL (4.00-5.40); RDW 18.9 % (11.5-14.5); WBC 8.4 10x3/uL (4.8-10.8)
[2018-09-08] MEDS ORDERED: VIBRAMYCIN 100100 MG PO (23:46)
[2018-09-08] MEDS ORDERED: PREDNISONE20 MG PO (23:46)
[2018-09-09 00:22] VITALS: BP 112/62
== END 2018-09-09 00:23 | disposition home or self-care (01) ==
LOC: D.ER 21:00
PROVIDERS: Emergency Medicine
DX: J44.9 Chronic obstructive pulmonary disease, unspecified (principal)